=== PATIENT | female | born 1980 | race Caucasian/White ===

== ENCOUNTER 2021-02-10 15:02 | Emergency (ER) | payer BC, OTHER ==
[~2021-02-10] VITALS: Ht 170.2 cm; Wt 83.7 kg
[2021-02-10] MEDS ORDERED: EXCETAB33 PO (15:16)
[2021-02-10] MEDS ORDERED: IBUP-1425 PO (15:16)
[2021-02-10 16:04] LABS: BASO # 0.1 10^3/uL (0.0-0.2); BASO % 0.7 % (0.0-1.0); EOS # 0.2 10^3/uL (0.0-0.5); HEMATOCRIT 41.6 % (36.0-47.0); HEMOGLOBIN 13.7 g/dl (12.0-15.5); LYMPH % 21.6 % (24.0-44.0); MEAN CORPUSCULAR HEMOGLOBIN 30.2 pg (27.0-33.0); MEAN CORPUSCULAR HGB CONC 32.9 g/dl (32.0-36.5); MEAN CORPUSCULAR VOLUME 91.6 fl (80.0-96.0); MONO # 0.6 10^3/uL (0.0-0.8); MONO % 6.4 % (2.0-8.0); NEUTROPHILS # 6.2 10^3/uL (1.5-8.5); NEUTROPHILS % 68.5 % (36.0-66.0); PLATELET COUNT, AUTOMATED 255 10^3/uL (150-450); RED BLOOD COUNT 4.54 10^6/uL (4.00-5.40)
[2021-02-10 16:34] LABS: BLOOD UREA NITROGEN 9 MG/DL (7-18); CALCIUM LEVEL 8.5 MG/DL (8.5-10.1); CARBON DIOXIDE LEVEL 23 MEQ/L (21-32); CHLORIDE LEVEL 108 MEQ/L (98-107); CREATININE FOR GFR 0.69 MG/DL (0.55-1.30); GLOMERULAR FILTRATION RATE > 60.0 (>60); GLUCOSE, FASTING 71 MG/DL (70-100); POTASSIUM SERUM 4.8 MEQ/L (3.5-5.1); SODIUM LEVEL 139 MEQ/L (136-145)
[2021-02-10 16:35] LABS: ALBUMIN 3.4 GM/DL (3.2-5.2); ALT/SGPT 17 U/L (12-78); BILIRUBIN,DIRECT < 0.1 MG/DL (0.0-0.2); BILIRUBIN,TOTAL 0.3 MG/DL (0.2-1.0); LIPASE 110 U/L (73-393); MAGNESIUM LEVEL 2.1 MG/DL (1.8-2.4); TOTAL PROTEIN 7.4 GM/DL (6.4-8.2)
[2021-02-10] MEDS ORDERED: ONDANSETRON 4MG/2ML VIAL IV ONE (17:00)
[2021-02-10] MEDS ORDERED: KETOROLAC 30 MG/ML 1ML VIAL IV ONE (17:00)
[2021-02-10] MEDS ORDERED: NS 1,000 ML IV ONE (17:00)
[2021-02-10 18:13] VITALS: BP 138/87
--- NOTE | 2021-02-10 18:24 | REPVR ---
PROCEDURE INFORMATION: Exam: MR Head Without Contrast Exam date and time: 02/10/2021 4:52 PM Age: 40 years old Clinical indication: Pain; Headache not specified; Additional info: Severe headache post covid vaccine/ mri/mrv please TECHNIQUE: Imaging protocol: MR of the head without contrast. COMPARISON: No relevant prior studies available. FINDINGS: Brain: No intracranial hemorrhage or extra-axial fluid collection. No evidence of mass effect or midline shift. No white matter abnormalities. No restricted diffusion to suggest acute infarct. Cerebral ventricles: Ventricles, cisterns, and sulci are normal. Bones/joints: Unremarkable. Paranasal sinuses: Normal as visualized. No acute sinusitis. Mastoid air cells: No mastoid effusion. Orbital cavity: Unremarkable. Soft tissues: Unremarkable. IMPRESSION: No acute intracranial findings. Electronically signed by: Marc Sanchez On 02/10/2021 18:24:07 PM
--- NOTE | 2021-02-10 18:25 | REPVR ---
PROCEDURE INFORMATION: Exam: MRA Head Without Contrast; Venography Exam date and time: 02/10/2021 5:04 PM Age: 40 years old Clinical indication: Pain; Patient HX: Post covid vaccination headache; Additional info: Mrv TECHNIQUE: Imaging protocol: Magnetic resonance angiography of the head without contrast. Exam focused on the veins. COMPARISON: No relevant prior studies available. FINDINGS: Superior sagittal sinus: Patent. Straight sinus: Patent. Transverse sinuses: Patent. Sigmoid sinuses: Patent. Internal jugular veins: Visualized segments are patent. IMPRESSION: No evidence of dural venous sinus thrombosis. Electronically signed by: Marc Sanchez On 02/10/2021 18:25:04 PM
[2021-02-10] MEDS ORDERED: SUMA25TA3 PO (18:37)
== END 2021-02-10 18:57 | disposition home or self-care (01) ==
LOC: M ED 15:02
DX: G43.909 Migraine, unspecified, not intractable, without status migrainosus (principal); T50.Z95A Adverse effect of other vaccines and biological substances, initial encounter; X58.XXXA Exposure to other specified factors, initial encounter; Y92.89 Other specified places as the place of occurrence of the external cause; F31.9 Bipolar disorder, unspecified; Z79.899 Other long term (current) drug therapy; F17.210 Nicotine dependence, cigarettes, uncomplicated
CPT/HCPCS: 70544; 70551; 80048; 80076; 83690; 83735; 84702; 85025; 96361; 96374; 96375; 99284; J1885; J2405

== ENCOUNTER → 2022-07-03 | Outpatient (REF) | payer BC ==
[~2022-07-03] MED LIST: EXCETAB32 PO; IBUP-1425 PO; SUMA25TA3 PO
[2022-07-03 14:08] LABS: RSV AMPLIFICATION NEGATIVE (NEGATIVE)
== END ==
LOC: M LAB REF 12:33
PROVIDERS: ATTEND Physician Assistant
DX: R05.9 Cough, unspecified (principal); Z20.822 Contact with and (suspected) exposure to COVID-19; Z20.828 Contact with and (suspected) exposure to other viral communicable diseases

== ENCOUNTER → 2023-04-25 | Outpatient (REF) | payer BC ==
[2023-04-25 17:07] LABS: RSV AMPLIFICATION NEGATIVE (NEGATIVE)
== END ==
LOC: M LAB REF 16:06
PROVIDERS: ATTEND Physician Assistant
DX: B34.9 Viral infection, unspecified (principal)